=== PATIENT | female | born 1980 | race African-American/Black ===

== ENCOUNTER 2023-12-16 14:52 | Emergency (ER) | payer OTHER, SELFPAY ==
--- NOTE | ~2023-12-16 | XR_ITS ---
EXAMINATION: XR tibia fibula RT 2V DATE: 12/16/2023 19:03 INDICATION: Right lower leg pain. Injury. TECHNIQUE: 2 views of right tibia and fibula were obtained. COMPARISON: Right ankle radiographs 12/16/2023 FINDINGS: There is an oblique fracture of distal fibula with medial aspect of the fracture line at th e level of the tibial plafond. The distal fracture fragment demonstrates 2 mm posterior displacement. There is mild widening of the medial ankle mortise. IMPRESSION: 1. Oblique fracture of distal fibula. 2. Mild widening of the medial ankle mortise, consistent with deltoid ligament sprain. Reviewed, dictated and finalized at location E. [employer]ORATORY DIRECTOR
--- NOTE | ~2023-12-16 | XR_ITS ---
EXAMINATION: XR ankle RT min 3V DATE: 12/16/2023 15:18 INDICATION: Lateral right ankle pain and swelling post fall TECHNIQUE: Anteroposterior, oblique, mortise, and lateral views of the right ankle were obtained. COMPARISON: None. FINDINGS: There is an oblique fracture through the distal fibula with a fracture plane exiting medially at the level of the tibiotalar joint. There is 1 mm posterolateral displacement. There is a nondisplaced co ronally oriented fracture at the posterior aspect of the posterior malleolus of the distal right tibi a. There is approximately 3 mm widening of the medial clear space with no evident fracture of the med ial malleolus. Normal alignment and no fractures in the visualized right foot. Joint spaces are ericka l. Soft tissue swelling about the ankle most prominent about the lateral malleolus. No ankle joint ef fusion. IMPRESSION: 1. Crooks type B injury pattern with minimally displaced fracture of the lateral malleolus, nondisplac ed fracture of the posterior malleolus and slight widening of the medial clear space which can be see n with deltoid ligament injury. This is a potentially unstable ankle fracture pattern and orthopedic consultation is indicated. Reviewed, dictated and finalized at location A. [employer] WORKER IMPRESSION: 1. Crooks type B injury pattern with minimally displaced fracture of the lateral malleolus, nondisplaced fracture of the posterior malleolus and slight widenin g of the medial clear space which can be seen with deltoid ligament injury. Thi s is a potentially unstable ankle fracture pattern and orthopedic consultation is indicated.
[2023-12-16 14:54] VITALS: BP 148/94; PULSE 103; RESP 20; TEMP 36.6; O2SAT 100
[2023-12-16 17:56] VITALS: BP 127/90; PULSE 89; RESP 16; O2SAT 100
[2023-12-16] MEDS: HYDROcodone/acetaminophen (*CRX) 5-325 MG TABLET 1 TAB PO (19:06)
[2023-12-16] MEDS: KETOROLAC (*BKC) 60 MG/2 ML VIAL IM (19:07)
--- NOTE | 2023-12-16 19:09 | ED.LOWEXIN ---
HPI - Extremity Injury (Lower) General Chief Complaint: Extremity Injury, Lower Stated Complaint: fall/ankle injury Time Seen by Provider: 12/16/23 17:41 Source: patient Mode of arrival: ambulatory Limitations: no limitations History of Present Illness HPI Narrative: Patient is a 43-year-old female who presents to the ED with right ankle pain. Patient reports she slipped on ice last night on her driveway. Her right ankle inverted as she fell. She complains of pain and swelling to her right ankle since then, has been unable to bear weight. Denies any other injuries. Denies knee pain, HI, LOC, numbness/tingling. Took Advil earlier this morning. Related Data Allergies Allergy/AdvReac Type Severity Reaction Status Date / Time No Known Allergies Allergy Verified 12/16/23 17:49 Review of Systems Review of Systems: CONSTITUTIONAL: Denies fever, chills, or sweats. MUSCULOSKELETAL: See HPI. NEUROLOGIC: Denies HI, LOC, tingling, numbness, or weakness. All systems reviewed & are unremarkable except as noted in HPI and below PMFSH Family History Family History Mother Hypertension Father Patient's father is in good health Sibling Patient's brother is in good health Social History Social History Smoking status: Never smoker Alcohol intake: never Exam Narrative: GENERAL: Well appearing, well-nourished, non-toxic, in no acute distress. HEAD: Normocephalic, atraumatic. RESPIRATORY: Airway patent, respirations nonlabored. Clear to auscultation bilaterally, no rales, rhonchi, wheezing. CARDIOVASCULAR: Regular rate and rhythm without murmurs, rubs, or gallops. Pedal pulses 2+ MUSCULOSKELETAL: Limited ROM of L ankle due to pain. Diffuse swelling throughout L ankle joint. TTP to lateral malleoli, posterior ankle, anterolateral dorsal foot. Less severe tenderness to medial malleoli. Some tenderness extending to more proximal lower leg. No significant tenderness throughout metatarsals. Sensation intact throughout foot, ankle, toes. SKIN: Warm, dry, normal color. NEURO: A&O X3. Speech clear. Cranial nerves II-XII grossly intact. No ataxic movements. PSYCHIATRIC: Appropriate mood and affect. Normal interaction. Course Vital Signs Vital signs: Vital Signs Temperature 98 F 12/16/23 14:54 Pulse Rate 103 H 12/16/23 14:54 Respiratory Rate 20 12/16/23 14:54 Blood Pressure 148/94 H 12/16/23 14:54 Pulse Oximetry 100 12/16/23 14:54 Oxygen Delivery Room Air 12/16/23 14:54 Temperature 98 F 12/16/23 14:54 Pulse Rate 78 12/16/23 20:56 Respiratory Rate 14 12/16/23 20:56 Blood Pressure 118/74 12/16/23 20:56 Pulse Oximetry 98 12/16/23 20:56 Oxygen Delivery Room Air 12/16/23 14:54 MDM - Extremity Injury (Lower) MDM Narrative Medical decision making narrative: Patient presented to ED s/p fall on ice last night, pain and injury to right ankle, unable to bear weight. Patient neurovascularly intact. Good pedal pulses. Sensation intact. X-ray right ankle showing Crooks type B fracture with fractures of lateral and posterior malleoli. Some widening of the medial ankle mortise, likely deltoid ligament injury. I did obtain tib-fib x-ray which did not show any further fractures. Patient updated on imaging findings. I did discuss case with Dr. Zhong, orthopedics, advised patient can follow-up in the office. Patient placed in posterior short-leg splint. Given crutches. Will prescribe pain medication for home. Given strict return precautions, discussed rice therapy. Patient in agreement with plan. No other injuries from the fall. Discharged in stable condition. Medical Records Attestation: I reviewed the patient's medical records. Imaging Data Attestation: I personally reviewed and interpreted this imaging study as follows: Radiologist's impression: ITS Impr
--- NOTE | 2023-12-16 19:13 | PC.NURSE ---
Report given to Noelle QUIÑONEZ, all questions answered
--- NOTE | 2023-12-16 19:38 | PC.NURSE ---
Assumed care of pt. Report from dayshift. Pt resting in room. PA at bedside discussing plan of care.
[2023-12-16 20:56] VITALS: BP 118/74; PULSE 78; RESP 14; O2SAT 98
== END 2023-12-16 20:58 | disposition home or self-care (01) ==
PROVIDERS: Emergency Provider Physician Assistant
DX: S82.61XA Displaced fracture of lateral malleolus of right fibula, initial encounter for closed fracture (principal); S82.54XA Nondisplaced fracture of medial malleolus of right tibia, initial encounter for closed fracture; W00.0XXA Fall on same level due to ice and snow, initial encounter
CPT/HCPCS: 29515; 73590; 73610; 96372; 99284; A9270; J1885